=== PATIENT | male | born 1975 | race Caucasian/White ===

== ENCOUNTER 2018-06-24 05:02 | Emergency (ER) | payer OTHER ==
[~2018-06-24] VITALS: Wt 94.9 kg
[~2018-06-24 05:02] MED LIST: DIVA500T33 PO; PHEN100C
[2018-06-24 05:07] VITALS: RESP 18
--- NOTE | 2018-06-24 06:06 | ERD ---
ER Documentation Chief Complaint Chief Complaint burning urination x 1 day, states has f/c HPI 42-year-old male, with history of suprapubic catheter for more than 19 years and seizure disorder, presents to the emergency department, complaining of 1 day with dysuria. His catheter was changed 2 days ago, he denies fever, no chills, no abdominal pain, no hematuria, no penile discharge. No nausea or vomiting however, he is requesting IV fluids because he feels dehydrated. ROS All systems reviewed and are negative except as per history of present illness. Medications Home Meds Active Scripts Acetaminophen* (Tylenol*) 325 Mg Tablet, 2 TAB PO Q6 PRN for PAIN AND OR ELEVATED TEMP, #20 TAB Prov:KINGSLEY HUMMEL MD 06/24/18 Reported Medications Divalproex Sodium (Depakote) 500 Mg Tablet.dr, 500 MG PO BID 09/15/10 Phenytoin* Sodium Extended (Dilantin*) 100 Mg Capsule, HS 09/15/10 Allergies Allergies: Coded Allergies: codeine (Verified Allergy, Mild, MUSCLE SPASMS, 02/11/12) ibuprofen (Verified Allergy, Mild, RASH, 02/11/12) PMhx/Soc History of Surgery: Yes (SUPRAPUBIC CATH) Anesthesia Reaction: No Hx Neurological Disorder: No Hx Respiratory Disorders: No Hx Cardiac Disorders: No Hx Psychiatric Problems: Yes Hx Miscellaneous Medical Probl: No Hx Alcohol Use: No Hx Substance Use: No Hx Tobacco Use: No FmHx Family History: diabetes; No coronary disease Physical Exam Vitals Vital Signs Date Temp Pulse Resp B/P (MAP) Pulse Ox O2 O2 Flow FiO2 Time Delivery Rate 06/24/18 81 116/64 08:39 (81) 06/24/18 97.3 84 18 120/69 97 05:07 (86) Physical Exam Const: No acute distress Head: Atraumatic Eyes: Normal Conjunctiva ENT: Dry oral mucosa, normal External Ears, Nose. Neck: Full range of motion. No meningismus. Resp: Clear to auscultation bilaterally Cardio: Regular rate and rhythm, no murmurs Abd: Soft, non tender, non distended. Normal bowel sounds, suprapubic catheter in place, no evidence of obstruction, clear urine. Skin: No petechiae or rashes Back: No midline or flank tenderness Ext: No cyanosis, or edema Neur: Awake and alert Psych: Normal Mood and Affect Results 24 hrs Laboratory Tests Test 06/24/18 06:52 Urine Color YELLOW Urine Clarity SLIGHTLY CLOUDY Urine pH 5.0 Urine Specific [place] 1.018 Urine Ketones 1+ mg/dL Urine Nitrite NEGATIVE mg/dL Urine Bilirubin NEGATIVE mg/dL Urine Urobilinogen 2+ mg/dL Urine Leukocyte Esterase 2+ Ean/ul Urine Microscopic RBC 4 /HPF Urine Microscopic WBC 60 /HPF Urine Mucus FEW /HPF Urine Hemoglobin 1+ mg/dL Urine Glucose NEGATIVE mg/dL Urine Total Protein NEGATIVE mg/dl Current Medications Medications Dose Sig/Dale Start Time Status Last (Trade) Ordered Route PRN Stop Time Admin Dose Reason Admin Lactated 500 ml @ Q1H ONCE 06/24/18 DC 06/24/18 Ringer's 500 mls/hr IV 06:30 06:42 06/24/18 07:29 Ceftriaxone 50 ml @ ONCE ONCE 06/24/18 DC 06/24/18 Sodium 100 mls/hr IVPB 08:00 07:52 06/24/18 08:29 Procedures/MDM Differential diagnosis include but not limited to: UTI, colitis, gastroenteritis, kidney stones, irritable bowel syndrome, inflammatory bowel syndrome, malabsorption syndrome, cholelithiasis, food intolerance, medication side effect, pancreatitis, diverticulitis, bowel obstruction. Low suspicion for acute abdomen Physical examination and clinical presentation consistent most likely with dysuria and dehydration, no evidence of deacon UTI or pyelonephritis, however, the patient received 1 dose of Rocephin IV. During the ED course the patient remained stable, no new complaints. Results and clinical impression discussed with patient who agrees with management. The patient is stable to be treated outpatient and will be discharged home, some side effects of prescribed medications (headache, rash, nausea, vomiting, diarrhea, drowsiness, habituation, bleeding, hypertension, interactions with other medications) were reviewed. The patient was instructed to follow up with the primary care provider in the next 48h. If symptoms persist, worsen or new symptoms develop, then patient should return to the ED immediately. Instructions explained and given directly by me to the patient with acknowledgment and demonstrated understanding. Disclaimer: Inadvertent spelling and grammatical errors are likely due to EHR/dictation software use and do not reflect on the overall quality of patient care. Also, please note that the electronic time recorded on this note does not necessarily reflect the actual time of the patient encounter. Departure Diagnosis: Primary Impression: Dysuria Additional Impression: Dehydration Condition: Stable Additional Instructions: Thank you very much for allowing us to participate in your care. Your health and safety is our top priority at [facility]. Call your primary care doctor TOMORROW for an appointment during the next 2-4 days and bring all the information and medications prescribed. Have prescriptions filled and follow precisely the directions on the label. If the symptoms get worse and your provider is unavailable, return to the Emergency Department immediately. KINGSLEY HUMMEL MD Jun 24, 2018 06:06
[2018-06-24] MEDS ORDERED: LACTATED RINGER'S 500 ML IV ONE (06:30)
[2018-06-24] MEDS ORDERED: CEFTRIAXONE 1 GM/50 ML (PMX) 50 ML IVPB ONE (08:00)
[2018-06-24 08:39] VITALS: BP 116/64; PULSE 81
[2018-06-24] MEDS ORDERED: ACET325T33 PO (08:40)
== END 2018-06-24 09:00 | disposition home or self-care (01) ==
LOC: FTE 05:02
DX: R30.0 Dysuria (principal); E86.0 Dehydration
CPT/HCPCS: 81001; 96361; 96365; J0696; J7120; Z7502

== ENCOUNTER 2018-07-22 13:05 | Emergency (ER) | payer OTHER ==
[~2018-07-22] VITALS: Wt 96.8 kg
[~2018-07-22 13:05] MED LIST changes: +ACET325T33 PO
[2018-07-22 13:08] VITALS: BP 143/75; PULSE 99; RESP 18
--- NOTE | 2018-07-22 13:30 | ERD ---
ER Documentation Chief Complaint Chief Complaint " I DONT FEEL MY STOMACH" DENIES PAIN, NO VOMITING' HPI 42-year-old gentleman who presents to the emergency room claiming that he cannot feel his stomach. The patient has unknown duration of symptoms. He is requesting an ultrasound to see his stomach. Patient denies any suicidal or homicidal ideation. Patient otherwise has no complaints. ROS All systems reviewed and are negative except as per history of present illness. Medications Home Meds Active Scripts Acetaminophen* (Tylenol*) 325 Mg Tablet, 2 TAB PO Q6 PRN for PAIN AND OR ELEVATED TEMP, #20 TAB Prov:KINGSLEY HUMMEL MD 06/24/18 Reported Medications Divalproex Sodium (Depakote) 500 Mg Tablet.dr, 500 MG PO BID 09/15/10 Phenytoin* Sodium Extended (Dilantin*) 100 Mg Capsule, HS 09/15/10 Allergies Allergies: Coded Allergies: codeine (Verified Allergy, Mild, MUSCLE SPASMS, 02/11/12) ibuprofen (Verified Allergy, Mild, RASH, 02/11/12) PMhx/Soc History of Surgery: Yes (SUPRAPUBIC CATH) Anesthesia Reaction: No Hx Neurological Disorder: Yes (SEIZURES) Hx Respiratory Disorders: No Hx Cardiac Disorders: No Hx Psychiatric Problems: Yes Hx Miscellaneous Medical Probl: No Hx Alcohol Use: No Hx Substance Use: No Hx Tobacco Use: No FmHx Family History: No diabetes Physical Exam Vitals Vital Signs Date Temp Pulse Resp B/P (MAP) Pulse Ox O2 O2 Flow FiO2 Time Delivery Rate 07/22/18 97.8 99 18 143/75 99 13:08 (97) Physical Exam General: Disheveled, no acute distress Head: Normocephalic, atraumatic. Eyes: Pupils equally reactive, EOM intact ENT: Moist mucous membranes Neck: Supple, no lymphadenopathy Respiratory: Lungs clear bilaterally, no distress Cardiovascular: RRR, no murmurs, rubs, or gallops Abdominal: Soft, non-tender, non-distended, no peritoneal signs : Deferred MSK: No edema, no unilateral swelling, 5/5 strength Neurologic: Alert and oriented, moving all extremities, normal speech, no focal weakness, no cerebellar signs Skin: No rash Psych: Delusion, no SI or HI Procedures/MDM The patient states that he cannot feel his stomach. His abdominal exam is benign. A bedside ultrasound was performed for the patient showing him organs. The patient felt very comfortable with this. The patient may have some delusion but does not appear to have acute psychosis. He has no suicidal or homicidal ideation. Patient appears homeless and was offered delinquency prevention social worker resources but the patient refused. After our conversation and exam the patient feels much better and would like to be discharged. He got up and walked out of the room before he got his discharge paperwork. Patient did not appear to be a danger to himself or others. All again he may have underlying psychiatric illness he has no evidence of acute psychosis. Patient safe for discharge. Departure Diagnosis: Primary Impression: Encounter for medical screening examination Condition: Stable Patient Instructions: Medical Screening Exam, Nonurgent Referrals: [facility] YOU HAVE RECEIVED A MEDICAL SCREENING EXAM AND THE RESULTS INDICATE THAT YOU DO NOT HAVE A CONDITION THAT REQUIRES URGENT TREATMENT IN THE EMERGENCY DEPARTMENT. FURTHER EVALUATION AND TREATMENT OF YOUR CONDITION CAN WAIT UNTIL YOU ARE SEEN IN YOUR DOCTORS OFFICE WITHIN THE NEXT 1-2 DAYS. IT IS YOUR RESPONSIBILITY TO MAKE AN APPOINTMENT FOR FOLOW-UP CARE. IF YOU HAVE A PRIMARY DOCTOR --you should call your primary doctor and schedule an appointment IF YOU DO NOT HAVE A PRIMARY DOCTOR YOU CAN CALL OUR PHYSICIAN REFERRAL HOTLINE AT IF YOU CAN NOT AFFORD TO SEE A PHYSICIAN YOU CAN CHOSE FROM THE FOLLOWING [facility] [address] [facility]. [facility] [address] [facility]. [facility] [address] [facility] [facility] [address] [facility]. [facility] [address] [facility]. [facility]. [address] [facility] YOU HAVE RECEIVED A MEDICAL SCREENING EXAM AND THE RESULTS INDICATE THAT YOU DO NOT HAVE A CONDITION THAT REQUIRES URGENT TREATMENT IN THE EMERGENCY DEPARTMENT. FURTHER EVALUATION AND TREATMENT OF YOUR CONDITION CAN WAIT UNTIL YOU ARE SEEN IN YOUR DOCTORS OFFICE WITHIN THE NEXT 1-2 DAYS. IT IS YOUR RESPONSIBILITY TO MAKE AN APPOINTMENT FOR FOLOW-UP CARE. IF YOU HAVE A PRIMARY DOCTOR --you should call your primary doctor and schedule and appointment IF YOU DO NOT HAVE A PRIMARY DOCTOR YOU CAN CALL OUR PHYSICIAN REFERRAL HOTLINE AT . IF YOU CAN NOT AFFORD TO SEE A PHYSICIAN YOU CAN CHOSE FROM THE FOLLOWING [facility] INSTITUTIONS: [facility] [address] [place] [address] [facility] [place] [address] [place] [address] [facility] [address] [place] [address] Additional Instructions: Call your primary care doctor TOMORROW for an appointment during the next 1 WEEK.Tell the engineering secretary that you were referred from this facility.See the doctor sooner or return here if your condition worsens before your appointment time. VINNIE CHAVIRA MD July 22, 2018 13:30
== END 2018-07-22 13:31 | disposition left against medical advice (07) ==
LOC: E/R 13:05
DX: Z00.00 Encounter for general adult medical examination without abnormal findings (principal)
CPT/HCPCS: 99282

== ENCOUNTER 2018-08-07 03:05 | Emergency (ER) | payer OTHER ==
[~2018-08-07] VITALS: Ht 177.8 cm; Wt 98.7 kg
[2018-08-07 03:08] VITALS: BP 142/84; PULSE 109; RESP 14; Ht 177.8 cm; Wt 98.7 kg
--- NOTE | 2018-08-07 05:20 | ERD ---
ER Documentation Chief Complaint Chief Complaint sharp pain around penis area x 2 hr HPI 42-year-old male, presents the emergency department, complaining of left groin pain for 2 weeks. The patient denies dysuria, no fever or chills, no abdominal pain. ROS All systems reviewed and are negative except as per history of present illness. Medications Home Meds Active Scripts Acetaminophen* (Tylenol*) 325 Mg Tablet, 2 TAB PO Q6 PRN for PAIN AND OR ELEVATED TEMP, #20 TAB Prov:KINGSLEY HUMMEL MD 06/24/18 Reported Medications Divalproex Sodium (Depakote) 500 Mg Tablet.dr, 500 MG PO BID 09/15/10 Phenytoin* Sodium Extended (Dilantin*) 100 Mg Capsule, HS 09/15/10 Allergies Allergies: Coded Allergies: codeine (Verified Allergy, Mild, MUSCLE SPASMS, 02/11/12) ibuprofen (Verified Allergy, Mild, RASH, 02/11/12) PMhx/Soc History of Surgery: Yes (SUPRAPUBIC CATH) Anesthesia Reaction: No Hx Neurological Disorder: Yes (SEIZURES) Hx Respiratory Disorders: No Hx Cardiac Disorders: No Hx Psychiatric Problems: Yes Hx Miscellaneous Medical Probl: No Hx Alcohol Use: No Hx Substance Use: No Hx Tobacco Use: Yes Smoking Status: Current every day smoker FmHx Family History: No diabetes, No coronary disease Physical Exam Vitals Vital Signs Date Temp Pulse Resp B/P (MAP) Pulse Ox O2 O2 Flow FiO2 Time Delivery Rate 08/07/18 98.1 109 14 142/84 99 03:08 (103) Physical Exam Const: No acute distress Head: Atraumatic Eyes: Normal Conjunctiva ENT: Normal External Ears, Nose and Mouth. Neck: Full range of motion. No meningismus. Resp: Clear to auscultation bilaterally Cardio: Regular rate and rhythm, no murmurs Abd: Soft, non tender, non distended. Normal bowel sounds Skin: Bilateral groin area with erythematous, well demarcated patches Back: No midline or flank tenderness Ext: No cyanosis, or edema Neur: Awake and alert Psych: Normal Mood and Affect Results 24 hrs Current Medications Medications Dose Sig/Dale Start Time Status Last (Trade) Ordered Route PRN Stop Time Admin Dose Reason Admin Nystatin/ 1 applic ONCE ONCE 08/07/18 DC Triamcinolone TOP 05:30 08/07/18 Acetonide 05:48 (Mycolog Cr) Procedures/MDM Vital signs stable, Differential diagnosis include but not limited to: Heat rash, contact dermatitis, viral exanthema, seborrheic dermatitis, scabies, acute allergic reaction, medication side effect. low suspicion for systemic infectious process, angioedema, anaphylactic shock. Physical examination and clinical presentation consistent most likely with intertrigo of bilateral groin area. Results and clinical impression discussed with the patient who agree with management. The patient is stable to be treated outpatient and will be discharged home. The patient needs a follow up with the primary care provider in the next 48h. If symptoms persist, worsen or new symptoms develop, then patient should return to the ED immediately. Instructions explained and given directly by me with acknowledgment and demonstrated understanding. Disclaimer: Inadvertent spelling and grammatical errors are likely due to EHR/dictation software use and do not reflect on the overall quality of patient care. Also, please note that the electronic time recorded on this note does not necessarily reflect the actual time of the patient encounter. Departure Diagnosis: Primary Impression: Intertriginous candidiasis Condition: Stable Additional Instructions: Thank you very much for allowing us to participate in your care. Your health and safety is our top priority at [facility]. The evaluation in the emergency department has been done to rule out an acute emergency. chronic conditions like malignancy or other diseases have not been evaluated; therefore, you need to follow up with a primary care provider in the next 48h. If symptoms persist, worsen or new symptoms develop, then patient should return to the ED immediately. Call your primary care doctor TOMORROW for an appointment during the next 2-4 days and bring all the information provided. Have prescriptions filled and follow precisely the directions on the label. If the symptoms get worse and your provider is unavailable, return to the Emergency Department immediately. KINGSLEY HUMMEL MD Aug 07, 2018 05:20
[2018-08-07] MEDS ORDERED: NYSTATIN/TRIAMCINOLONE 15 GM CR TOP ONE (05:30)
== END 2018-08-07 06:00 | disposition left against medical advice (07) ==
LOC: FTE 03:05
DX: B37.2 Candidiasis of skin and nail (principal); F17.210 Nicotine dependence, cigarettes, uncomplicated
CPT/HCPCS: Z7502; Z7610; 99282